=== PATIENT | male | born 1945 | race Caucasian/White ===

== ENCOUNTER 2023-07-02 17:31 | Emergency (ER) | payer MEDICARE, OTHER ==
[~2023-07-02] VITALS: Ht 185.4 cm; Wt 79.4 kg
[2023-07-02 17:42] VITALS: BP 151/64; TEMP 98.4; O2SAT 100
[2023-07-02] MEDS ORDERED: TRAM50TA2 PO (18:06)
[2023-07-02] MEDS ORDERED: DICL100G34 TP (18:06)
[2023-07-02] MEDS ORDERED: IBUP-1953 PO (18:06)
[2023-07-02] MEDS ORDERED: POLY17PO4 PO (18:06)
[2023-07-02] MEDS ORDERED: DOXY100C2 PO (18:06)
[2023-07-02] MEDS ORDERED: CALC-1143 PO (18:06)
[2023-07-02] MEDS ORDERED: GABA-532 PO (18:06)
[2023-07-02] MEDS ORDERED: ZOLP5TAB8 PO (18:06)
[2023-07-02] MEDS ORDERED: INSU100V27 SQ ×3 (18:06)
[2023-07-02] MEDS ORDERED: ACET-868 PO (18:06)
[2023-07-02] MEDS ORDERED: METO25TA20 PO (18:06)
[2023-07-02] MEDS ORDERED: LOSA50TA39 PO (18:06)
[2023-07-02] MEDS ORDERED: APIX5TAB PO (18:06)
[2023-07-02] MEDS ORDERED: CHOL100043 PO (18:06)
[2023-07-02] MEDS ORDERED: INSU100V7 SQ (18:06)
[2023-07-02] MEDS ORDERED: SPIR25TA6 PO (18:06)
[2023-07-02] MEDS ORDERED: ATOR40TA PO (18:06)
[2023-07-02] MEDS ORDERED: LOPE2CAP PO (18:06)
== END 2023-07-02 21:09 | disposition home health service (06) ==
LOC: ER 18:02
DX: E10.621 Type 1 diabetes mellitus with foot ulcer (principal); L97.519 Non-pressure chronic ulcer of other part of right foot with unspecified severity; Z88.8 Allergy status to other drugs, medicaments and biological substances